=== PATIENT | male | born 1990 | race Two or more races ===

== ENCOUNTER → 2017-10-12 | Outpatient (CLI) | payer MEDICAID | END | disposition home or self-care (01) | LOC: Rad HDHVI 14:54 | PROVIDERS: ATTEND Internal Medicine Cardiovascular Disease | DX: R07.89 Other chest pain (principal); R06.01 Orthopnea | CPT/HCPCS: 93306 ==

== ENCOUNTER → 2018-01-07 | Outpatient (CLI) | payer MEDICAID ==
[~2018-01-07] VITALS: Ht 182.9 cm; Wt 61.2 kg
== END | disposition home or self-care (01) ==
LOC: Rad HDHVI 09:22
PROVIDERS: ATTEND Internal Medicine Cardiovascular Disease
DX: E03.9 Hypothyroidism, unspecified (principal); R00.1 Bradycardia, unspecified; R07.89 Other chest pain; Z85.49 Personal history of malignant neoplasm of other male genital organs
CPT/HCPCS: 93017

== ENCOUNTER 2018-06-16 10:34 | Emergency (ER) | payer MEDICAID ==
[~2018-06-16] VITALS: Ht 182.9 cm; Wt 61.2 kg
[2018-06-16 11:28] LABS: Basophils # (auto) 0 uL; Basophils % (auto) 0.5 % (0.0-2.0); Eosinophils # (auto) 0 uL; Eosinophils % (auto) 0.1 % (0.0-7.0); Hematocrit 48.2 % (41.0-53.0); Hemoglobin 16.9 g/dL (13.5-17.5); Lymphocytes # (auto) 1.2 uL; Lymphocytes % (auto) 16.6 % (10.0-50.0); Mean Corpuscular Hemoglobin 30.5 pg (28.0-32.0); Mean Corpuscular Hgb Conc. 35.1 g/dL (32.0-36.0); Mean Corpuscular Volume 86.9 fL (80.0-100.0); Monocytes # (auto) 0.4 uL; Monocytes % (auto) 5.1 % (0.0-12.0); Neutrophils # (auto) 5.8 uL; Neutrophils % (auto) 77.7 % (37.0-80.0); Nucleated Red Blood Cells % 0.1 %; Platelet Count (auto) 359 10^3/uL (140-450); Red Blood Cells 5.55 10^6/uL (4.5-5.90); Red Cell Distribution Width 11.7 % (11.8-14.3); White Blood Cell 7.5 10^3/uL (4.4-10.8)
[2018-06-16 11:49] LABS: Alanine Aminotransferase 35 U/L (16-61); Albumin 4.4 g/dL (3.4-5.0); Anion Gap 8 (5-15); Aspartate Aminotransferase 18 U/L (15-37); BUN/Creatinine Ratio 13.6; Blood Urea Nitrogen 11 mg/dL (7-18); Carbon Dioxide 23 mmol/L (21-32); Chloride 107 mmol/L (98-107); GFR African American 149 mL/min; GFR Non-African American 123 mL/min; Glucose 86 mg/dL (74-106); Potassium 3.8 mmol/L (3.5-5.1); Sodium 138 mmol/L (136-145)
[2018-06-16 11:54] LABS: Alkaline Phosphatase 71 U/L (45-117); Total Protein 7.6 g/dL (6.4-8.2)
[2018-06-16 12:40] VITALS: BP 133/75
== END 2018-06-16 12:45 | disposition home or self-care (01) ==
LOC: ER 10:34
DX: F14.90 Cocaine use, unspecified, uncomplicated (principal); R00.2 Palpitations; E07.9 Disorder of thyroid, unspecified; F12.90 Cannabis use, unspecified, uncomplicated; Z90.49 Acquired absence of other specified parts of digestive tract
CPT/HCPCS: 36415; 80053; 83735; 84484; 85025; 93005